=== PATIENT | male | born 1950 | race Two or more races ===

== ENCOUNTER → 2017-02-14 | Outpatient (CLI) | payer BC, MEDICARE ==
--- NOTE | 2017-02-14 12:26 | REP ---
Prostate sonography: History: Elevated PSA Sonographic findings: Trans rectal prostate sonography demonstrates unremarkable seminal vesicles. Prostate gland is heterogeneously enlarged with calcifications and cystic changes noted. Glandular dimensions are measured at 5.1 x 3.8 x 5.9 cm with a calculated glandular volume of 59.5 ml. Transrectal sonographic guidance provided to Dr. Yeager who performed trans rectal ultrasound guided needle biopsy procedure . Signed by Adrian William MD 02/14/2017 12:17 P
== END ==
LOC: M SMT PRO 09:48
PROVIDERS: ATTEND Urology
DX: C61 Malignant neoplasm of prostate (principal); R97.20 Elevated prostate specific antigen [PSA]
CPT/HCPCS: 76872; 76942; 88344; G0416

== ENCOUNTER → 2018-01-30 | Outpatient (CLI) | payer MEDICARE, BC | LOC: M SMT PRO 08:51 | DX: C61 Malignant neoplasm of prostate (principal); R97.20 Elevated prostate specific antigen [PSA] | CPT/HCPCS: G0416 ==

== ENCOUNTER → 2019-02-12 | Outpatient (CLI) | payer MEDICARE, BC ==
--- NOTE | 2019-02-12 13:22 | REP ---
Prostate sonography: History: Prostate cancer. Sonographic findings: Trans rectal prostate sonography demonstrates unremarkable seminal vesicles. Prostate gland is heterogeneously enlarged with calcifications and cystic changes noted. Glandular dimensions are measured at 5.1 x 5.5 x 3.6 cm with a calculated glandular volume of 52.4 ml. Transrectal sonographic guidance is provided to Dr. Yeager who performed trans rectal ultrasound guided needle biopsy procedure . Electronically Signed by Adrian William MD 02/12/2019 01:14 P
== END ==
LOC: M SMT PRO 11:05
PROVIDERS: ATTEND Urology
DX: C61 Malignant neoplasm of prostate (principal)
CPT/HCPCS: 55700; 76942; G0416

== ENCOUNTER → 2020-04-17 | Outpatient (CLI) | payer MEDICARE, BC ==
[~2020-04-17] MED LIST: ATOR1TAB19 PO; FLOM0.4C39 PO; FLON1SPR; LISI-542 PO; NEXI40GR PO; SERT-141 PO; SULF1TAB93; SYMB16INH INH; XARE20TA PO
== END ==
LOC: M LABSMTC 10:22
PROVIDERS: ATTEND Anesthesiology
DX: Z11.59 Encounter for screening for other viral diseases (principal)
CPT/HCPCS: C9803; U0003

== ENCOUNTER 2020-04-20 07:29 | Day surgery (SDC) | payer MEDICARE, BC ==
[~2020-04-20] VITALS: Ht 175.3 cm; Wt 87.5 kg
[~2020-04-20 07:29] MED LIST changes: +LIDOCAINE 1% MDV 20ML VIAL SQ PRN; -LISI-542 PO; +LISI-898 PO; +LR 1,000 ML IV ONE; +LevoFLOXacin IV 500 MG in IV 1 EA IV ONE; -SULF1TAB93
[2020-04-20] MEDS ORDERED: SULF1TAB93 (08:39)
[2020-04-20] MEDS ORDERED: fentaNYL 100 MCG/2 ML INJECTION (J3010) As Ordered ONE (10:32)
[2020-04-20] MEDS ORDERED: propofoL 200 MG/20 ML VIAL As Ordered ONE (10:32)
[2020-04-20] MEDS ORDERED: ONDANSETRON 4MG/2ML VIAL As Ordered ONE (10:33)
[2020-04-20] MEDS ORDERED: LIDOCAINE 2% 100MG/5ML SDV (FOR ANES.) As Ordered ONE (10:33)
[2020-04-20] MEDS ORDERED: FUROSEMIDE 100MG/10ML VIAL (J1940) As Ordered ONE (11:57)
[2020-04-20] MEDS ORDERED: LR 1,000 ML IV SCH (12:45)
[2020-04-20] MEDS ORDERED: oxyCODONE 5MG TAB PO PRN (12:45)
[2020-04-20] MEDS ORDERED: fentaNYL 100 MCG/2 ML INJECTION (J3010) IV PRN (12:45)
[2020-04-20] MEDS ORDERED: ACETAMINOPHEN TAB 650MG DOSE (2X325MG) PO PRN (12:45)
[2020-04-20 13:45] VITALS: BP 119/81
--- NOTE | 2020-04-22 11:31 | RO ---
DATE OF PROCEDURE: 04/20/2020 PREPROCEDURE DIAGNOSIS: Benign prostatic hyperplasia. POSTPROCEDURE DIAGNOSIS: Benign prostatic hyperplasia. PROCEDURE: Cystoscopy, Button transurethral electrovaporization of the prostate. SURGEON: Dr. Chris Yeager ENTERPRISE APPLICATION ADMINISTRATOR: None. ANESTHESIA: General. OPERATIVE INDICATIONS: This is a 69-year-old male with benign prostatic hyperplasia which has been refractory to medical therapy as well as previous procedure. He is brought to the operating room today for the above listed procedure. DESCRIPTION OF PROCEDURE: The patient was brought to the operating room and general anesthesia was induced. Prophylactic antibiotics were infused. He was then placed in the dorsal lithotomy position and prepped and draped in the usual sterile fashion. A resectoscope was inserted into the urethral meatus and advanced into the bladder using a visual obturator. Once inside the bladder, the patient was noted to have bilobar benign prostatic hyperplasia. I made note of location of both ureteral orifices and they were not close to the bladder neck. At this point, I began vaporizing hyperplastic tissue circumferentially at the bladder neck and then on both lobes of disease. I kept doing this until there was a clear channel established. Throughout the procedure, I made sure not to vaporize too close to the ureteral orifices or distal to the verumontanum. Once satisfied there was a clear channel established, hemostasis was obtained using the coagulation current. Once satisfied with hemostasis, the resectoscope was removed and an 18 [place] Burkett catheter was inserted into the bladder. The balloon was filled with 15 mL of sterile water. Then the catheter was then connected to gravity drainage. This marked the conclusion of the procedure. The patient was then taken out of dorsal lithotomy position, awakened from anesthesia and transported to the recovery room in stable condition. Estimated blood loss 15 mL. Complications: None. Specimens: None. Plan: The patient will followup in the clinic next week for catheter removal and voiding trial.
== END 2020-04-20 14:05 | disposition home or self-care (01) ==
LOC: M SDC 07:29
PROVIDERS: ATTEND Urology
DX: N40.0 Benign prostatic hyperplasia without lower urinary tract symptoms (principal); J45.909 Unspecified asthma, uncomplicated; K21.9 Gastro-esophageal reflux disease without esophagitis; K44.9 Diaphragmatic hernia without obstruction or gangrene; Z88.1 Allergy status to other antibiotic agents; Z79.899 Other long term (current) drug therapy; Z86.718 Personal history of other venous thrombosis and embolism
CPT/HCPCS: 52601; J1940; J1956; J2405; J3010

== ENCOUNTER → 2020-05-07 | Outpatient (REF) | payer MEDICARE, BC ==
[~2020-05-07] MED LIST changes: -LIDOCAINE 1% MDV 20ML VIAL SQ PRN; +LISI-542 PO; -LISI-898 PO; -LR 1,000 ML IV ONE; -LevoFLOXacin IV 500 MG in IV 1 EA IV ONE; +SULF1TAB93
[2020-05-07 17:38] LABS: APPEARANCE, URINE CLOUDY (CLEAR); BACTERIA, URINE AUTO NEGATIVE (NEGATIVE); BILIRUBIN, URINE AUTO NEGATIVE (NEGATIVE); BLOOD, URINE BLOOD 3+ (NEGATIVE); CALCIUM OXALATE CRYSTALS SMALL; COLOR, URINE AMBER (YELLOW); GLUCOSE, URINE (UA) AUTO NEGATIVE (NEGATIVE); KETONE, URINE AUTO NEGATIVE (NEGATIVE); LEUKOCYTE ESTERASE, URINE AUTO 3+ (NEGATIVE); NITRITE, URINE AUTO NEGATIVE (NEGATIVE); PROTEIN, URINE AUTO 2+ mg/dL (NEGATIVE); RBC, URINE AUTO TNTC /HPF (0-3); SPECIFIC GRAVITY URINE AUTO 1.021 (1.002-1.035); SQUAMOUS EPITHELIAL CELL UR AU 0 /HPF (0-6); UROBILINOGEN, URINE AUTO 0.2 mg/dL (0.0-2.0); WBC, URINE AUTO 121 /HPF (0-3)
== END ==
LOC: M SMT 16:44
PROVIDERS: ATTEND Nurse Practitioner Family
DX: N40.1 Benign prostatic hyperplasia with lower urinary tract symptoms (principal)

== ENCOUNTER → 2023-09-26 | Outpatient (CLI) | payer MEDICARE, BC ==
[~2023-09-26] MED LIST changes: +BACTDSTA; -LISI-542 PO; +LISI5TAB11 PO; -SULF1TAB93
== END ==
LOC: M RAD 10:24
PROVIDERS: ATTEND Orthopaedic Surgery
DX: M25.552 Pain in left hip (principal); Z96.642 Presence of left artificial hip joint; M16.0 Bilateral primary osteoarthritis of hip
CPT/HCPCS: 78315; A9503

== ENCOUNTER → 2024-06-13 | Outpatient (CLI) | payer MEDICARE ==
[~2024-06-13] MED LIST changes: +LIDOCAINE 1% MDV 20ML VIAL As Ordered ONE
[2024-06-13 15:33] LABS: SOURCE, BODY FLUID LT HIP; SYNOVIAL FLUID COLOR ORANGE (COLORLESS)
== END ==
LOC: M RAD 14:23
PROVIDERS: ATTEND Orthopaedic Surgery
DX: M25.552 Pain in left hip (principal)